=== PATIENT | male | born 1965 | race African-American/Black ===

== ENCOUNTER 2024-03-23 19:43 | Emergency (ER) | payer MEDICAID ==
[~2024-03-23] VITALS: Ht 175.3 cm; Wt 62.0 kg
[2024-03-23 19:51] VITALS: BP 148/92; RESP 14; TEMP 36.7; O2SAT 100
[2024-03-23 19:52] VITALS: PULSE 81; O2SAT 100
[2024-03-23 22:21] LABS: BASOPHILS % 0.9 % (0.0-2.0); HEMATOCRIT. 37.4 % (42.0-52.0); HEMOGLOBIN. 12.3 g/dL (14.0-18.0); MEAN CORPUSCULAR HEMOGLOBIN 31.7 pg (28.0-32.0); MEAN CORPUSCULAR HGB CONC 32.8 g/dL (31.0-37.0); MEAN CORPUSCULAR VOLUME 96.7 fL (80.0-94.0); MEAN PLATELET VOLUME 8.9 fl (7.4-10.4); MONOCYTES % 7.9 % (2.0-8.0); NEUTROPHILS % 45.2 % (40.0-76.0); PLATELET 238 x1000/uL (130-400); RED BLOOD CELL COUNT 3.87 mill/uL (4.7-6.1); RED CELL DISTRIBUTION WIDTH 14.5 % (11.6-14.6); WHITE BLOOD COUNT 4.1 x1000/uL (4.5-11.0)
[2024-03-23 22:36] LABS: ALANINE AMINOTRANSFERASE < 7 IU/L (10-49); ASPARTATE AMINOTRANSFERASE 10 IU/L (<34)
[2024-03-23 22:37] LABS: ALBUMIN 4.2 g/dL (3.2-4.8); BILIRUBIN TOTAL 0.3 mg/dL (0.1-1.0); CHLORIDE 110 mEq/L (98-107); POTASSIUM 4.3 mEq/L (3.5-5.1); PROTEIN TOTAL 6.8 g/dL (6.0-8.3); SODIUM 148 mEq/L (136-145)
[2024-03-23 22:38] LABS: CALCIUM 9.8 mg/dL (8.7-10.4); CARBON DIOXIDE 30 mEq/L (21-32)
[2024-03-23 22:43] LABS: CREATININE 1.3 mg/dL (0.6-1.3); GLUCOSE 78 mg/dL (70-105); TROPONIN I HIGH SENSITIVITY 4 ng/L (3.0-53); UREA NITROGEN BLOOD 15 mg/dL (9-23)
[2024-03-23 22:46] LABS: BILIRUBIN DIRECT < 0.1 mg/dL (<=3.0)
== END 2024-03-23 23:03 | disposition left against medical advice (07) ==
LOC: ER 19:43
DX: R07.9 Chest pain, unspecified (principal); J45.909 Unspecified asthma, uncomplicated; Z88.1 Allergy status to other antibiotic agents; Z88.2 Allergy status to sulfonamides
CPT/HCPCS: 36415; 71045; 80048; 80076; 84484; 85025; 93005; 99285